=== PATIENT | female | born 1945 | race Caucasian/White ===

== ENCOUNTER 2025-01-30 07:55 | Day surgery (SDC) | payer MEDICARE, OTHER ==
[~2025-01-30 07:55] MED LIST: Lactated Ringers 1,000 ML IV SCH; Sodium Chloride 0.9% 10 ML Syringe FLUSH PRN; Sodium Chloride 0.9% 10 ML Syringe FLUSH SCH
[2025-01-30] MEDS ORDERED: Ondansetron 4 MG/2 ML SDV ONE (08:22)
[2025-01-30] MEDS ORDERED: dexmedeTOMIDine HCl 200 MCG/2 ML SDV ONE (08:22)
[2025-01-30] MEDS ORDERED: propofoL 500 MG/50 ML 50 ML ONE (08:22)
[2025-01-30] MEDS ORDERED: ePHEDrine 50 MG/ML SDV ONE (09:16)
[2025-01-30] MEDS ORDERED: Lactated Ringers 1,000 ML ONE (09:19)
[2025-01-30] MEDS ORDERED: Ropivacaine 0.5% 5 MG/ML 30 ML SDV ONE (09:38)
[2025-01-30] MEDS ORDERED: Ondansetron 4 MG/2 ML SDV IVPUSH PRN (09:55)
[2025-01-30] MEDS ORDERED: fentaNYL 100 MCG/2 ML SDV IVPUSH PRN (09:55)
[2025-01-30] MEDS: Morphine 8 MG, EPINEPHrine 0.3 MG, Cefuroxime 750 MG, Ketorolac 30 MG, Sodium Chloride ... PRN (09:56)
[2025-01-30 15:09] VITALS: BP 125/59; PULSE 57
== END 2025-01-30 14:05 | disposition home or self-care (01) ==
LOC: JD.SDS 07:55
PROVIDERS: ATTEND Orthopaedic Surgery
DX: M17.12 Unilateral primary osteoarthritis, left knee (principal); K21.9 Gastro-esophageal reflux disease without esophagitis; I10 Essential (primary) hypertension; E78.5 Hyperlipidemia, unspecified; F32.A Depression, unspecified; Z88.0 Allergy status to penicillin; Z88.8 Allergy status to other drugs, medicaments and biological substances; Z79.899 Other long term (current) drug therapy
CPT/HCPCS: 0055T; 27447; 64447; 73560; 97110; 97116; 97161; A9270; C1713; C1776; J0169; J0690; J0697; J1885; J2272; J2405; J2704; J2795; J3373; J7120; J3490